=== PATIENT | male | born 1975 | race Two or more races ===

== ENCOUNTER → 2017-06-02 | Emergency (ER) | payer OTHER ==
[2017-06-02 22:48] VITALS: BMI 28.2
--- NOTE | 2017-06-02 23:20 | PDOC ---
History of Present Illness - General History Source: Patient <No Varmaan - Last Filed: 06/02/17 23:17> - General History Source: Patient Exam Limitations: No Limitations - History of Present Illness Initial Comments: 06/02/17 23:29 The patient is a 41 year old male with a significant PMH of alcohol abuse who presents to the emergency department from [facility] for evaluation of diffuse black spots on skin. Patient was sent by TAMMI Rome who was concerned about various black spots over the patients body, particularly on his arms and trunk. The patient notes that he has had these black spots for years. The patient denies chest pain, shortness of breath, headache, and dizziness. Denies fevers, chills, nausea, vomit, diarrhea, and constipation. Denies dysuria, frequency, urgency, and hematuria. Allergies: NKA Past surgical history: Rhinoplasty (1975). Social history: Alcohol abuse, at [facility] for detox. No reported cigarette or drug use. PCP: None reported. <Kalin Gutierrez - Last Filed: 06/02/17 23:29> - General Chief Complaint: Alcohol intoxication Stated Complaint: R/O DIABETES Time Seen by Provider: 06/02/17 23:14 Past History - Past Medical History Anemia: No Asthma: No Cancer: No Cardiac Disorders: No CVA: No COPD: No CHF: No Dementia: No Diabetes: No GI Disorders: No Disorders: No HTN: No Hypercholesterolemia: No Liver Disease: No Seizures: No Thyroid Disease: No - Surgical History Abdominal Surgery: No Appendectomy: No Cardiac Surgery: No Cholecystectomy: No Lung Surgery: No Neurologic Surgery: No Orthopedic Surgery: No - Suicide/Smoking/Psychosocial Hx Smoking History: Unknown if ever smoked Have you smoked in the past 12 months: No Information on smoking cessation initiated: No Hx Alcohol Use: No Drug/Substance Use Hx: No Substance Use Type: Alcohol Hx Substance Use Treatment: No <Severiano Varma - Last Filed: 06/02/17 23:17> <Kalin Gutierrez - Last Filed: 06/02/17 23:29> - Past Medical History Allergies/Adverse Reactions: Allergies Allergy/AdvReac Type Severity Reaction Status Date / Time No Known Allergies Allergy Verified 06/02/17 22:47 Review of Systems - Review of Systems Able to Perform ROS?: Yes Comments:: 06/02/17 23:29 CONSTITUTIONAL: Absent: fever, chills, diaphoresis, generalized weakness, malaise, loss of appetite HEENT: Absent: rhinorrhea, nasal congestion, throat pain, throat swelling, difficulty swallowing, mouth swelling, ear pain, eye pain, visual Changes CARDIOVASCULAR: Absent: chest pain, syncope, palpitations, irregular heart rate, lightheadedness , peripheral edema RESPIRATORY: Absent: cough, shortness of breath, dyspnea with exertion, orthopnea, wheezing, stridor, hemoptysis GASTROINTESTINAL: Absent: abdominal pain, abdominal distension, nausea, vomiting, diarrhea, constipation, melena, hematochezia GENITOURINARY: Absent: dysuria, frequency, urgency, hesitancy, hematuria, flank pain, genital pain MUSCULOSKELETAL: Absent: myalgia, arthralgia, joint swelling SKIN: (+) Black spots diffusely over body. Absent: rash, itching, pallor HEMATOLOGIC/IMMUNOLOGIC: Absent: easy bleeding, easy bruising, lymphadenopathy, frequent infections ENDOCRINE: Absent: unexplained weight gain, unexplained weight loss, heat intolerance, cold intolerance NEUROLOGIC: Absent: headache, focal weakness or paresthesias, dizziness, unsteady gait, seizure, mental status changes, bladder or bowel incontinence PSYCHIATRIC: Absent: anxiety, depression, suicidal or homicidal ideation, hallucinations. <Kalin Gutierrez - Last Filed: 06/02/17 23:29> *Physical Exam - Vital Signs Last Vital Signs Temp Pulse Resp BP Pulse Ox 98 F 92 H 15 136/72 96 06/02/17 23:16 06/02/17 23:16 06/02/17 23:16 06/02/17 23:16 06/02/17 23:16 <Severiano Varma - Last Filed: 06/02/17 23:17> - Vital Signs Last Vital Signs Temp Pulse Resp BP Pulse Ox 98 F 92 H 15 136/72 96 06/02/17 23:16 06/02/17 23:16 06/02/17 23:16 06/02/17 23:16 06/02/17 23:16 - Physical Exam Comments: 06/02/17 23:29 GENERAL: Well developed, well nourished. Awake and alert. No acute distress. HEENT: Normocephalic, atraumatic. PERRLA, EOMI. No conjunctival pallor. Sclera are non- icteric. Moist mucous membranes. Oropharynx is clear. NECK: Supple. Full ROM. No JVD. Carotid pulses 2+ and symmetric, without bruits. No thyromegaly. No lymphadenopathy. CARDIOVASCULAR: Regular rate and rhythm. No murmurs, rubs, or gallops. Distal pulses are 2+ and symmetric. PULMONARY: No evidence of respiratory distress. Lungs clear to auscultation bilaterally. No wheezing, rales or rhonchi. ABDOMINAL: Soft. Non-tender. Non-distended. No rebound or guarding. No organomegaly. Normoactive bowel sounds. MUSCULOSKELETAL Normal range of motion at all joints. No bony deformities or tenderness. No CVA tenderness. EXTREMITIES: No cyanosis. No clubbing. No edema. No calf tenderness. SKIN: (+) Diffuse black lesions, particularly on arms bilaterally and trunk, nontender, nonerythematous, nonfluctuant diffusely. Warm and dry. Normal capillary refill. No rashes. No jaundice. NEUROLOGICAL: Alert, awake, appropriate. Cranial nerves 2-12 intact. No deficits to light touch and temperature in face, upper extremities and lower extremities. No motor deficits in the in face, upper extremities and lower extremities. Normoreflexic in the upper and lower extremities. Normal speech. Toes are downgoing bilaterally. Gait is normal without ataxia. PSYCHIATRIC: Cooperative. Good eye contact. Appropriate mood and affect. <Kalin Gutierrez - Last Filed: 06/02/17 23:29> *DC/Admit/Observation/Transfer - Attestations Scribe Attestion: 06/02/17 23:29 Documentation prepared by Kalin Gutierrez, acting as medical secretary for Severiano Varma DO. <Kalin Gutierrez - Last Filed: 06/02/17 23:29>
[2017-06-02 23:38] VITALS: BP 136/72; PULSE 92; TEMP 98
== END | disposition home or self-care (01) ==
LOC: JER 22:32
DX: R23.9 Unspecified skin changes (principal)
CPT/HCPCS: 70450-TC; 99282-25

== ENCOUNTER 2018-04-01 18:39 | Inpatient (IN) | payer OTHER ==
--- NOTE | 2018-04-01 19:01 | HP ---
CIWA Score Nausea/Vomitin Muscle Tremors: 2 Anxiety: 2 Agitation: 2 Paroxysmal Sweats: 1-Minimal Palms Moist Orientation: 0-Oriented Tacttile Disturbances: 1-Very Mild Itch/Numbness Auditory Disturbances: 1-Very Mild Visual Disturbances: 0-None Headache: 2-Mild CIWA-Ar Total Score: 14 - Admission Criteria [facility] Guidelines: Admission for Medically Managed Detox: Requires at least one of the followin. CIWA greater than 12 2. Seizures within the past 24 hours 3. Delirium tremens within the past 24 hours 4. Hallucinations within the past 24 hours 5. Acute intervention needed for co occurring medical disorder 6. Acute intervention needed for co occurring psychiatric disorder 7. Severe withdrawal that cannot be handled at a lower level of care (continued vomiting, continued diarrhea, abnormal vital signs) requiring intravenous medication and/or fluids 8. Patient presents the following: CIWA greater than 12 Admission Criteria Met: Admission criteria met Admission ROS BHS - HPI Chief Complaint: i need help to stop drinking alcohol Allergies/Adverse Reactions: Allergies Allergy/AdvReac Type Severity Reaction Status Date / Time No Known Allergies Allergy Verified 04/01/18 18:50 History of Present Illness: this 42 years old male with alcohol dependence,seeking help to stop drinking, withdrawal symptom, stated seen at [facility] on tuesday03/30/18 receing medication and was sent home yesterday 03/31/18 multiple ecchymosis body,extremities denied trauma last detox in [facility] in 06/26 nicotine dependence no significant period of sobriety syncope alcohol related Exam Limitations: No Limitations - Ebola screening Have you traveled outside of the country in the last 21 days: No - Review of Systems Constitutional: Loss of Appetite, Malaise, Night Sweats, Changes in sleep, Weakness EENT: reports: Nose Congestion, Other (jaundice) Respiratory: reports: No Symptoms reported Cardiac: reports: No Symptoms Reported GI: reports: Nausea, Vomiting, Abdominal cramping : reports: No Symptoms Reported Musculoskeletal: reports: Back Pain, Muscle Pain Integumentary: reports: Dryness (multiple ecchymosis of body,extremities) Neuro: reports: Tremors Endocrine: reports: No Symptoms Reported Hematology: reports: No Symptoms Reported Psychiatric: reports: No Sypmtoms Reported, Judgement Intact, Mood/Affect Appropiate, Orientated x3 Patient History - Patient Medical History Hx Anemia: No Hx Asthma: No Hx Chronic Obstructive Pulmonary Disease (COPD): No Hx Cancer: No Hx Cardiac Disorders: No Hx Congestive Heart Failure: No Hx Hypertension: No Hx Hypercholesterolemia: No HX Cerebrovascular Accident: No Hx Seizures: No Hx Dementia: No Hx Diabetes: No Hx Gastrointestinal Disorders: No Hx Liver Disease: No Hx Genitourinary Disorders: No Hx Sexually Transmitted Disorders: No Hx Renal Disease (ESRD): No Hx Thyroid Disease: No Hx Human Immunodeficiency Virus (HIV): No (Negative April 2017) Hx Hepatitis C: No Hx Depression: No Hx Suicide Attempt: No (Denies suicidal ideation) Hx Bipolar Disorder: No Hx Schizophrenia: No Other Medical History: no sucidal,no homicidal - Patient Surgical History Past Surgical History: Yes Hx Neurologic Surgery: No Hx Cataract Extraction: No Hx Cardiac Surgery: No Hx Lung Surgery: No Hx Abdominal Surgery: No Hx Appendectomy: No Hx Cholecystectomy: No Hx Genitourinary Surgery: No Hx Orthopedic Surgery: No Other Surgical History: Rhinoplasty 1976 Anesthesia Reaction: No - PPD History Previous Implant?: Yes Documented Results: Negative w/o proof Implanted On Prior R Admission?: No PPD to be Administered?: Yes - Smoking Cessation Smoking history: Current every day smoker Have you smoked in the past 12 months: Yes Aproximately how many cigarettes per day: 2 Cigars Per Day: 0 Hx Chewing Tobacco Use: No Initiated information on smoking cessation: Yes 'Breaking Loose' booklet given: 04/01/18 - Substance & Tx. History Hx Alcohol Use: Yes Hx Substance Use: No Substance Use Type: Alcohol Hx Substance Use Treatment: Yes ([facility] in 06/26) - Substances Abused Alcohol Route: Oral Frequency: Daily Amount used: 500 mls of vodka Age of first use: 11 Date of Last Use: 04/30/18 Family Disease History - Family Disease History Family Disease History: Diabetes: Mother (), Other: Father (alcohol, ) Admission Physical Exam BHS - Vital Signs Vital Signs: Vital Signs Temperature 98.6 F 04/01/18 18:48 Pulse Rate 106 H 04/01/18 18:48 Respiratory Rate 18 04/01/18 18:48 Blood Pressure 149/84 04/01/18 18:48 O2 Sat by Pulse Oximetry (%) - Physical General Appearance: Yes: Moderate Distress, Tremorous, Irritable, Sweating, Anxious HEENTM: Yes: Normal ENT Inspection, SATURNINO, Pharynx Normal, Other (jaundice rhinoplasty) Respiratory: Yes: Lungs Clear, Normal Breath Sounds, No Respiratory Distress Neck: Yes: Within Normal Limits, Supple, Trachea in good position Breast: Yes: Within Normal Limits Cardiology: Yes: Within Normal Limits, Regular Rhythm, Regular Rate, S1, S2 Abdominal: Yes: Within Normal Limits, Normal Bowel Sounds, Non Tender, Flat, Soft Genitourinary: Yes: Within Normal Limits Back: Yes: Normal Inspection, Muscle Spasm Musculoskeletal: Yes: Back pain, Muscle Pain Extremities: Yes: Tremors Neurological: Yes: slag skimmer II-XII NML intact, Fully Oriented, Alert, Motor Strength 5/5 Integumentary: Yes: Dry Lymphatic: Yes: Within Normal Limits - Diagnostic (1) Alcohol dependence with uncomplicated withdrawal Current Visit: No Status: Chronic (2) Multiple bruises Current Visit: Yes Status: Acute (3) Syncope Current Visit: Yes Status: Acute (4) Nicotine dependence Current Visit: Yes Status: Acute (5) Weight loss Current Visit: Yes Status: Acute (6) Depression Current Visit: No Status: Chronic Cleared for Admission [facility] - Detox or Rehab [facility] Level of Care: Medically Managed Detox Regimen/Protocol: Librium [facility] Breath Alcohol Content Breath Alcohol Content: 0.320
[2018-04-01] MEDS ORDERED: LOPERAMIDE HCL 2 MG CAPSULE PO PRN (19:21)
[2018-04-01] MEDS ORDERED: MENTHOL/PHENOL 1 EACH UD MM PRN (19:21)
[2018-04-01] MEDS ORDERED: ACETAMINOPHEN 325 MG TABLET (FP) PO PRN (19:21)
[2018-04-01] MEDS ORDERED: MAG HYDROX/AL HYDROX/SIMETH 30 ML UNIT-DOSE CUP PO PRN (19:21)
[2018-04-01] MEDS ORDERED: guaiFENesin/D-METHORPHAN HB 10 ML UNIT-DOSE CUPS PO PRN (19:21)
[2018-04-01] MEDS ORDERED: IBUPROFEN 400 MG TABLET (FP) PO PRN (19:21)
[2018-04-01] MEDS ORDERED: P-EPHED 60MG/TRIPROLIDI 2.5MG TABLET PO PRN (19:21)
[2018-04-01] MEDS ORDERED: MAGNESIUM HYDROX 2400MG/30ML ORAL SUSPENSION 30 ML CUP PO PRN (19:21)
[2018-04-01] MEDS ORDERED: MAGNESIUM CITRATE 300 ML BOTTLE PO PRN (19:21)
[2018-04-01 19:24] VITALS: BMI 25.8
[2018-04-01] MEDS: chlordiazePOXIDE HCL 25 MG CAPSULE PO PRN (20:01)
[2018-04-01] MEDS: THIAMINE HCL 100 MG TABLET (FP) PO SCH (22:12)
[2018-04-01] MEDS: chlordiazePOXIDE HCL 25 MG CAPSULE PO SCH (22:13)
[2018-04-01] MEDS: MELATONIN 5 MG TABLETS PO PRN (23:25)
[2018-04-02] MEDS: chlordiazePOXIDE HCL 25 MG CAPSULE PO SCH ×4 (06:10→22:08)
[2018-04-02] MEDS: chlordiazePOXIDE HCL 25 MG CAPSULE PO PRN (09:25)
--- NOTE | 2018-04-02 10:07 | CONSULT ---
[facility] Psychiatric Consult - Data Date of interview: 04/02/18 Admission source: [facility] Identifying data: Patient is a 42 y/o male single, without children, unemployed , homeless, on public assistance Substance Abuse History: Here for alcohol detox, he has a long history of alcohol abuse since his adolescence age. He has been on a binge over the past 3 months. He drinks Vodka, Tequilla , beers on a daily frequency. He reports past Detox treatments at [facility]. His most recent Detox admission was 6 months ago Medical History: Patient denies active medical problem. Noted bruises over abdomen and upper extremities. Broken nose repaired in 1997 Psychiatric History: Patient denies past psychiatric hospitalization or treatment. Occasionally feels depressed, denies psychosis , anxiety or mood swings , he denies suicidal or homicidal ideation. Patient stated when he feels depressed mostly after he stopped drinking Physical/Sexual Abuse/Trauma History: Patient denies history of abuse or trauma Additional Comment: Prior trouble with law for DUI Mental Status Exam - Mental Status Exam Alert and Oriented to: Place, Person Cognitive Function: Grossly Intact Patient Appearance: Well Groomed Mood: Sad Affect: Appropriate Patient Behavior: Appropriate, Cooperative Speech Pattern: Clear Voice Loudness: Normal Thought Process: Intact Thought Disorder: Not Present Hallucinations: Denies Suicidal Ideation: Denies Homicidal Ideation: Denies Insight/Judgement: Poor Sleep: Difficulty falling asleep Appetite: Poor Muscle strength/Tone: Mild Hypotonicity Gait/Station: Normal Psychiatric Findings - Problem List (Clark 1, 2,3) (1) Multiple bruises Current Visit: Yes Status: Acute (2) Nicotine dependence Current Visit: Yes Status: Acute (3) Syncope Current Visit: Yes Status: Acute (4) Alcohol dependence with uncomplicated withdrawal Current Visit: No Status: Chronic (5) Depression Current Visit: No Status: Chronic - Initial Treatment Plan Initial Treatment Plan: Continue Detox treament. Trazodone 50 mg po q hs. Monitor progress
[2018-04-02] MEDS: PRENATAL VITAMINS W/ FOLIC ACID TABLET (FP) PO SCH (10:27)
[2018-04-02 10:37] LABS: HEMATOCRIT 39.6 % (35.4-49); HEMOGLOBIN 13.2 GM/dL (11.7-16.9); MCH 32.5 pg (25.7-33.7); MCHC 33.4 g/dl (32.0-35.9); MEAN CELL VOLUME 97.1 fl (80-96); PLATELET COUNT 65 K/MM3 (134-434); RBC 4.08 M/mm3 (4.00-5.60); RDW 16.8 % (11.9-15.9); WHITE BLOOD COUNT 4.3 K/mm3 (4.0-10.0)
[2018-04-02 10:54] LABS: ALBUMIN 3.6 g/dl (3.4-5.0); ALK PHOS 115 U/L (45-117); ANION GAP 13 MMOL/L (8-16); BILIRUBIN,TOTAL 3.1 mg/dL (0.2-1); BLOOD UREA NITROGEN 7 mg/dL (7-18); CALCIUM 8.6 mg/dL (8.5-10.1); CHLORIDE 93 mmol/L (98-107); CO2 29 mmol/L (21-32); CREATININE 0.5 mg/dL (0.55-1.3); GLUCOSE,RANDOM 83 mg/dL (74-106); SGOT/AST 413 U/L (15-37); SGPT/ALT 189 U/L (13-61); SODIUM 135 mmol/L (136-145); TOT PROT 7.3 g/dl (6.4-8.2)
[2018-04-02 11:05] LABS: INR 1.03 (0.83-1.09); PROTHROMBIN TIME (PATIENT) 12.2 SEC (9.7-13.0)
[2018-04-02 11:47] LABS: POTASSIUM 2.7 mmol/L (3.5-5.1)
[2018-04-02] MEDS ORDERED: POTASSIUM CHLORIDE ORAL LIQUID 20 MEQ/15 ML PO ONE ×3 (11:52→21:00)
[2018-04-02] MEDS: AMMONIUM LACTATE 12% LOTION 225 GM BOTTLE TP SCH ×3 (12:46→22:10)
--- NOTE | 2018-04-02 15:38 | PN ---
[facility] CIWA - CIWA Score Nausea/Vomitin Muscle Tremors: 4-Moderate,w/Arms Extend Anxiety: 4-Mod. Anxious/Guarded Agitation: 3 Paroxysmal Sweats: 3 Orientation: 0-Oriented Tacttile Disturbances: 1-Very Mild Itch/Numbness Auditory Disturbances: 0-None Visual Disturbances: 0-None Headache: 0-None Present CIWA-Ar Total Score: 17 S Progress Note (SOAP) Subjective: Tremor, interrupted sleep, nightmares; c/o dry skin and requesting lotion Objective: 04/02/18 15:34 Last Vital Signs Temp Pulse Resp BP Pulse Ox 97.4 F L 73 18 95/61 04/02/18 13:43 04/02/18 13:43 04/02/18 13:43 04/02/18 13:43 Hypotension noted Laboratory Tests 04/02/18 04/02/18 04/02/18 07:30 07:30 07:30 WBC 4.3 RBC 4.08 Hgb 13.2 Hct 39.6 MCV 97.1 H MCH 32.5 MCHC 33.4 RDW 16.8 H Plt Count 65 L MPV 9.0 PT with INR INR Sodium 135 L Potassium 2.7 L* Chloride 93 L Carbon Dioxide 29 Anion Gap 13 BUN 7 Creatinine 0.5 L Creat Clearance w eGFR > 60 Random Glucose 83 Calcium 8.6 Total Bilirubin 3.1 H AST 413 H ALT 189 H Alkaline Phosphatase 115 Ammonia Total Protein 7.3 Albumin 3.6 RPR Titer Nonreactive 04/02/18 04/02/18 07:30 07:30 WBC RBC Hgb Hct MCV MCH MCHC RDW Plt Count MPV PT with INR 12.20 INR 1.03 Sodium Potassium Chloride Carbon Dioxide Anion Gap BUN Creatinine Creat Clearance w eGFR Random Glucose Calcium Total Bilirubin AST ALT Alkaline Phosphatase Ammonia 158.60 H Total Protein Albumin RPR Titer Labs reviewed: K 2.7, AST/ALT 413/189, Ammonia level 158.60 Assessment: 04/02/18 15:37 Withdrawal symptoms Noted with hypokalemia, hyponatremia, elevated LFTs and hyperammonemia Plan: Continue detox Hypokalemia: asymptomatic, start K Dur 40 Meq PO liquid x 3 doses (at least 4 hrs apart) today then 20 Meq PO bid to start tomorrow, K level in AM Hyponatremia: asymptomatic, repeat Na level in AM Elevated LFTs: probably due to alcohol dependence; repeat AST/ALT in AM Hyperammonemia: start lactulose 20gm PO bid (to start tomorrow due to supplemental of potassium) Dry skin: lac hydrin lotion bid
[2018-04-02] MEDS: THIAMINE HCL 100 MG TABLET (FP) PO SCH (22:08)
[2018-04-02] MEDS: traZODone HCL 50 MG TABLET (FP) PO SCH (22:08)
[2018-04-02] MEDS: MELATONIN 5 MG TABLETS PO PRN (23:08)
[2018-04-03] MEDS: chlordiazePOXIDE HCL 25 MG CAPSULE PO SCH ×3 (06:10→17:08)
[2018-04-03] MEDS: POTASSIUM CHLORIDE TABS 20 MEQ TABLET.ER (FP) PO SCH ×2 (10:11→22:25)
[2018-04-03] MEDS: LACTULOSE 20 GM/30 ML UDC (FOR ORAL USE ONLY) PO SCH ×2 (10:11→22:39)
[2018-04-03] MEDS: PRENATAL VITAMINS W/ FOLIC ACID TABLET (FP) PO SCH (10:11)
[2018-04-03] MEDS: AMMONIUM LACTATE 12% LOTION 225 GM BOTTLE TP SCH ×2 (10:12→22:40)
--- NOTE | 2018-04-03 10:44 | PN ---
[facility] CIWA - CIWA Score Nausea/Vomitin-Mild Nausea/No Vomiting Muscle Tremors: 3 Anxiety: 1-Mildly Anxious Agitation: 1-Slight > Activity Paroxysmal Sweats: 3 Orientation: 0-Oriented Tacttile Disturbances: 0-None Auditory Disturbances: 0-None Visual Disturbances: 0-None Headache: 0-None Present CIWA-Ar Total Score: 9 S Progress Note (SOAP) Subjective: Tremors Sleep disturbance sweats Objective: 04/03/18 10:44 In day room, A & O x 3 No acute distress noted Vital Signs Temperature 96.8 F L 04/03/18 09:04 Pulse Rate 98 H 04/03/18 09:04 Respiratory Rate 18 04/03/18 09:04 Blood Pressure 92/61 04/03/18 09:04 O2 Sat by Pulse Oximetry (%) Low BP, denies dizziness nor other complaints Assessment: 04/03/18 10:45 withdrawal sx hYPOTENSION Plan: Continue detox Continue increased hydration
[2018-04-03 11:08] LABS: POTASSIUM 3.7 mmol/L (3.5-5.1)
--- NOTE | 2018-04-03 14:48 | PN ---
[facility] Progress Note Note: Pt requesting to be discharged on Tuesday because he says he has a high risk for relapse, states "I know myself, when I go out I may not be able to stop and I dont feel well". Pt denies SI/HI. Offered aftercare rehab to pt, but he declined stating he has to go back to work. Explained to pt that he will be clinically monitored with discharge decisions made as necessary to ensure a safe discharge. Pt verbalized understanding.
[2018-04-03 15:10] LABS: URINE APPEARANCE CLEAR; URINE COLOR AMBER; URINE GLUCOSE (UA) NEGATIVE (NEGATIVE); URINE KETONE NEGATIVE (NEGATIVE); URINE LEUK ESTERASE NEGATIVE (NEGATIVE); URINE NITRITE NEGATIVE (NEGATIVE); URINE PROTEIN 2+ (NEGATIVE); URINE UROBILINOGEN 4.0 E.U/dl mg/dL (0.2-1.0)
[2018-04-03 15:23] LABS: EPI CELLS RARE /HPF (FEW); URINE MUCUS RARE
[2018-04-03] MEDS: hydrOXYzine PAMOATE 25 MG CAPSULE (FP) PO PRN ×2 (17:42→23:05)
--- NOTE | 2018-04-03 18:54 | PN ---
[facility] Progress Note Note: pt states he developed a rash on his arms after dinner. Has a chronic ecchymotic rash on arms and torso. This rash only on his arms-better now compared to about 2 hours ago when he received vistaril. Denies SOB, throat/ tongue swelling. PE: Vital Signs - 24 hr 04/02/18 04/03/18 04/03/18 21:25 00:30 03:30 Temperature 97.4 F L Pulse Rate 73 Respiratory 18 16 16 Rate Blood Pressure 100/60 04/03/18 04/03/18 04/03/18 06:24 09:04 13:04 Temperature 97.1 F L 96.8 F L 96.9 F L Pulse Rate 65 98 H 92 H Respiratory 18 18 18 Rate Blood Pressure 98/63 92/61 98/60 04/03/18 18:00 Temperature 97.1 F L Pulse Rate 74 Respiratory 18 Rate Blood Pressure 104/67 rash- large macular/papular quarter size- from wrist to mid arm. Nowhere else on body- not on trunk, legs or back. No vesicles a/p: allergic rash to food? pt states food intake was usual food-nothing new. Will give another dose of Vistaril at 7pm (2 hours after first dose) and hydrocortisone cream.
[2018-04-03] MEDS: HYDROCORTISONE 0.5% TOPICAL CREAM 30 GM TUBE TP PRN ×2 (19:10→22:26)
[2018-04-03] MEDS ORDERED: hydrOXYzine PAMOATE 25 MG CAPSULE (FP) PO ONE (19:15)
[2018-04-03] MEDS: traZODone HCL 50 MG TABLET (FP) PO SCH (22:25)
[2018-04-03] MEDS: chlordiazePOXIDE 5 MG CAPSULE PO SCH (22:26)
[2018-04-03] MEDS: THIAMINE HCL 100 MG TABLET (FP) PO SCH (22:26)
[2018-04-03] MEDS: MELATONIN 5 MG TABLETS PO PRN (22:28)
[2018-04-04] MEDS: chlordiazePOXIDE 5 MG CAPSULE PO SCH ×3 (05:19→16:18)
[2018-04-04] MEDS: AMMONIUM LACTATE 12% LOTION 225 GM BOTTLE TP SCH ×2 (10:12→22:18)
[2018-04-04] MEDS: POTASSIUM CHLORIDE TABS 20 MEQ TABLET.ER (FP) PO SCH ×2 (10:13→22:18)
[2018-04-04] MEDS: PRENATAL VITAMINS W/ FOLIC ACID TABLET (FP) PO SCH (10:13)
[2018-04-04] MEDS: LACTULOSE 20 GM/30 ML UDC (FOR ORAL USE ONLY) PO SCH ×2 (10:15→22:17)
--- NOTE | 2018-04-04 12:36 | EKG ---
Test Reason : Blood Pressure : / mmHG Vent. Rate : 087 BPM Atrial Rate : 087 BPM P-R Int : 140 ms QRS Dur : 080 ms QT Int : 366 ms P-R-T Axes : 051 006 016 degrees QTc Int : 440 ms NORMAL SINUS RHYTHM NORMAL ECG Confirmed by MD MAURICE, VIKAS ([id number]) on 04/04/2018 12:36:04 PM Referred By: Josephine Dickens Confirmed By:VIKAS RICHARDS MD
--- NOTE | 2018-04-04 15:27 | PN ---
S Progress Note (SOAP) Subjective: Tremor, anxious, sweating. Patient scheduled for discharge tomorrow and refused inpatient rehab. Objective: 04/04/18 15:21 Last Vital Signs Temp Pulse Resp BP Pulse Ox 97.1 F L 88 18 98/63 04/04/18 13:05 04/04/18 13:05 04/04/18 13:05 04/04/18 13:05 Hypotension noted (98/63) Laboratory Tests 04/02/18 04/02/18 04/02/18 07:00 07:30 07:30 WBC 4.3 RBC 4.08 Hgb 13.2 Hct 39.6 MCV 97.1 H MCH 32.5 MCHC 33.4 RDW 16.8 H Plt Count 65 L MPV 9.0 PT with INR INR Sodium 135 L Potassium 2.7 L* Chloride 93 L Carbon Dioxide 29 Anion Gap 13 BUN 7 Creatinine 0.5 L Creat Clearance w eGFR > 60 Random Glucose 83 Calcium 8.6 Total Bilirubin 3.1 H AST 413 H ALT 189 H Alkaline Phosphatase 115 Ammonia Total Protein 7.3 Albumin 3.6 Urine Color Urine Appearance Urine pH Ur Specific [place] Urine Protein Urine Glucose (UA) Urine Ketones Urine Blood Urine Nitrite Urine Bilirubin Urine Urobilinogen Ur Leukocyte Esterase Urine WBC (Auto) Urine RBC (Auto) Ur Epithelial Cells Urine Mucus RPR Titer HIV 1&2 Antibody Screen Negative HIV P24 Antigen Negative 04/02/18 04/02/18 04/02/18 07:30 07:30 07:30 WBC RBC Hgb Hct MCV MCH MCHC RDW Plt Count MPV PT with INR 12.20 INR 1.03 Sodium Potassium Chloride Carbon Dioxide Anion Gap BUN Creatinine Creat Clearance w eGFR Random Glucose Calcium Total Bilirubin AST ALT Alkaline Phosphatase Ammonia 158.60 H Total Protein Albumin Urine Color Urine Appearance Urine pH Ur Specific [place] Urine Protein Urine Glucose (UA) Urine Ketones Urine Blood Urine Nitrite Urine Bilirubin Urine Urobilinogen Ur Leukocyte Esterase Urine WBC (Auto) Urine RBC (Auto) Ur Epithelial Cells Urine Mucus RPR Titer Nonreactive HIV 1&2 Antibody Screen HIV P24 Antigen 04/03/18 04/03/18 07:00 10:30 WBC RBC Hgb Hct MCV MCH MCHC RDW Plt Count MPV PT with INR INR Sodium 136 Potassium 3.7 Chloride Carbon Dioxide Anion Gap BUN Creatinine Creat Clearance w eGFR Random Glucose Calcium Total Bilirubin AST 277 H ALT 182 H Alkaline Phosphatase Ammonia Total Protein Albumin Urine Color Diana Urine Appearance Clear Urine pH 7.0 Ur Specific [place] 1.017 Urine Protein 2+ H Urine Glucose (UA) Negative Urine Ketones Negative Urine Blood Negative Urine Nitrite Negative Urine Bilirubin 4.0 Urine Urobilinogen 4.0 e.u/dl Ur Leukocyte Esterase Negative Urine WBC (Auto) 2 Urine RBC (Auto) 1 Ur Epithelial Cells Rare Urine Mucus Rare RPR Titer HIV 1&2 Antibody Screen HIV P24 Antigen Labs reviewed: increased LFs (trending downward), UA shows 2+ protein Assessment: 04/04/18 15:22 Withdrawal symptoms Noted with hypotension and proteinuria Plan: Continue detox Hypotension: asymptomatic, encouraged PO water intake Proteinuria: repeat UA Patient is scheduled for discharge tomorrow
[2018-04-04] MEDS: chlordiazePOXIDE HCL 10 MG CAPSULE PO SCH (22:17)
[2018-04-04] MEDS: traZODone HCL 50 MG TABLET (FP) PO SCH (22:17)
[2018-04-04] MEDS: THIAMINE HCL 100 MG TABLET (FP) PO SCH (22:18)
[2018-04-04] MEDS: MELATONIN 5 MG TABLETS PO PRN (22:20)
[2018-04-04 23:26] LABS: URINE APPEARANCE CLEAR; URINE BILIRUBIN NEGATIVE (<2.0 mg/dL); URINE COLOR AMBER; URINE GLUCOSE (UA) NEGATIVE (NEGATIVE); URINE KETONE NEGATIVE (NEGATIVE); URINE LEUK ESTERASE NEGATIVE (NEGATIVE); URINE NITRITE NEGATIVE (NEGATIVE); URINE PROTEIN NEGATIVE (NEGATIVE); URINE UROBILINOGEN 4.0 E.U/dl mg/dL (0.2-1.0)
[2018-04-05] MEDS: chlordiazePOXIDE HCL 10 MG CAPSULE PO SCH (05:45)
[2018-04-05 06:15] VITALS: BP 100/58; PULSE 65; TEMP 98
--- NOTE | 2018-04-05 09:18 | DS ---
[facility] Detox Discharge Summary Admission Date: 04/01/18 Discharge Date: 04/05/18 - History Present History: Alcohol Dependence Additional Comments: 42 years old male admitted on 04/01/18 for alcohol withdrawl sx completed alcohol detox regimen tolerated well with ammonia elevation treated with lactulose po case discussed with the counselor aftercare revelation x 14 days continue lactulose treatment health teaching on alcohol related ammonia elevation - Physical Exam Results Vital Signs: Vital Signs Temperature 98.0 F 04/05/18 06:13 Pulse Rate 65 04/05/18 06:13 Respiratory Rate 18 04/05/18 06:13 Blood Pressure 100/58 L 04/05/18 06:13 O2 Sat by Pulse Oximetry (%) Pertinent Admission Physical Exam Findings: alcohol withdrawal sx Vital Signs Temperature 98.0 F 04/05/18 06:13 Pulse Rate 65 04/05/18 06:13 Respiratory Rate 18 04/05/18 06:13 Blood Pressure 100/58 L 04/05/18 06:13 O2 Sat by Pulse Oximetry (%) Laboratory Last Values WBC 4.3 K/mm3 (4.0-10.0) 04/02/18 07:30 RBC 4.08 M/mm3 (4.00-5.60) 04/02/18 07:30 Hgb 13.2 GM/dL (11.7-16.9) 04/02/18 07:30 Hct 39.6 % (35.4-49) 04/02/18 07:30 MCV 97.1 fl (80-96) H 04/02/18 07:30 MCH 32.5 pg (25.7-33.7) 04/02/18 07:30 MCHC 33.4 g/dl (32.0-35.9) 04/02/18 07:30 RDW 16.8 % (11.9-15.9) H 04/02/18 07:30 Plt Count 65 K/MM3 (134-434) L 04/02/18 07:30 MPV 9.0 fl (7.5-11.1) 04/02/18 07:30 PT with INR 12.20 SEC (9.7-13.0) 04/02/18 07:30 INR 1.03 (0.83-1.09) 04/02/18 07:30 Sodium 136 mmol/L (136-145) 04/03/18 07:00 Potassium 3.7 mmol/L (3.5-5.1) 04/03/18 07:00 Chloride 93 mmol/L (98-107) L 04/02/18 07:30 Carbon Dioxide 29 mmol/L (21-32) 04/02/18 07:30 Anion Gap 13 MMOL/L (8-16) 04/02/18 07:30 BUN 7 mg/dL (7-18) 04/02/18 07:30 Creatinine 0.5 mg/dL (0.55-1.3) L 04/02/18 07:30 Creat Clearance w eGFR > 60 (>60) 04/02/18 07:30 Random Glucose 83 mg/dL (74-106) 04/02/18 07:30 Calcium 8.6 mg/dL (8.5-10.1) 04/02/18 07:30 Total Bilirubin 3.1 mg/dL (0.2-1) H 04/02/18 07:30 AST 277 U/L (15-37) H 04/03/18 07:00 ALT 182 U/L (13-61) H 04/03/18 07:00 Alkaline Phosphatase 115 U/L (45-117) 04/02/18 07:30 Ammonia 158.60 umol/L (11-32) H 04/02/18 07:30 Total Protein 7.3 g/dl (6.4-8.2) 04/02/18 07:30 Albumin 3.6 g/dl (3.4-5.0) 04/02/18 07:30 Urine Color Diana 04/04/18 16:27 Urine Appearance Clear 04/04/18 16:27 Urine pH 7.0 (5.0-8.0) 04/04/18 16:27 Ur Specific [place] 1.013 (1.010-1.035) 04/04/18 16: Urine Protein Negative (NEGATIVE) 04/04/18 16: Urine Glucose (UA) Negative (NEGATIVE) 04/04/18 16:27 Urine Ketones Negative (NEGATIVE) 04/04/18 16:27 Urine Blood Negative (NEGATIVE) 04/04/18 16: Urine Nitrite Negative (NEGATIVE) 04/04/18 16: Urine Bilirubin Negative (<2.0 mg/dL) 04/04/18 16:27 Urine Urobilinogen 4.0 e.u/dl mg/dL (0.2-1.0) 04/04/18 16:27 Ur Leukocyte Esterase Negative (NEGATIVE) 04/04/18 16:27 Urine WBC (Auto) 2 /hpf (3-5) 04/03/18 10:30 Urine RBC (Auto) 1 /hpf (0-3) 04/03/18 10:30 Ur Epithelial Cells Rare /HPF (FEW) 04/03/18 10:30 Urine Mucus Rare 04/03/18 10:30 RPR Titer Nonreactive (NONREACTIVE) 04/02/18 07:30 HIV 1&2 Antibody Screen Negative 04/02/18 07:00 HIV P24 Antigen Negative 04/02/18 07:00 lab noted repeat ammonia level that the patient is going to [facility] [place] - Treatment Hospital Course: Detox Protocol Followed, Detoxed Safely, Responded well, Discharged Condition Good, Rehab Referral Accepted Patient has Accepted a Rehab Referral to: [facility] - Medication Discharge Medications: Ambulatory Orders Lactulose (Oral Use) [Cephulac -] 20 gm PO BID #1 [facility] [place] 04/05/18 - Diagnosis (1) Alcohol dependence with uncomplicated withdrawal Current Visit: Yes Status: Acute (2) Hyperammonemia Current Visit: Yes Status: Acute (3) Multiple bruises Current Visit: Yes Status: Chronic (4) Nicotine dependence Current Visit: Yes Status: Acute Qualifiers: Nicotine product type: cigarettes Substance use status: in withdrawal Qualified Code(s): F17.213 - Nicotine dependence, cigarettes, with withdrawal - AMA Did Patient Leave Against Medical Advice: No
== END 2018-04-05 09:23 | disposition home or self-care (01) | DRG 775 ==
LOC: YASAS 18:39 → Y3N 19:24
PROVIDERS: ADMIT Neuromusculoskeletal Medicine & OMM; ATTEND Neuromusculoskeletal Medicine & OMM
PROC: HZ2ZZZZ Detoxification Services for Substance Abuse Treatment (ICD-10-PCS; principal; 2018-04-01)
DX: F10.230 Alcohol dependence with withdrawal, uncomplicated (principal); F17.213 Nicotine dependence, cigarettes, with withdrawal; F32.9 Major depressive disorder, single episode, unspecified; I95.9 Hypotension, unspecified; L85.3 Xerosis cutis; R94.5 Abnormal results of liver function studies; R80.9 Proteinuria, unspecified; R21 Rash and other nonspecific skin eruption; E87.1 Hypo-osmolality and hyponatremia; S30.1XXA Contusion of abdominal wall, initial encounter; S40.022A Contusion of left upper arm, initial encounter; S40.021A Contusion of right upper arm, initial encounter; X58.XXXA Exposure to other specified factors, initial encounter; Y93.9 Activity, unspecified; Y92.9 Unspecified place or not applicable
CPT/HCPCS: 36415; 80053; 81003; 81015; 82140; 84132; 84295; 84450; 84460; 85027; 85610; 86593; 87389; 93005; 93010

== ENCOUNTER 2018-04-05 10:13 | Inpatient (IN) | payer OTHER ==
[2018-04-05 11:27] VITALS: BMI 26.6
[2018-04-05] MEDS ORDERED: MAGNESIUM CITRATE 300 ML BOTTLE PO PRN (12:27)
[2018-04-05] MEDS ORDERED: LOPERAMIDE HCL 2 MG CAPSULE PO PRN (12:27)
[2018-04-05] MEDS ORDERED: ACETAMINOPHEN 325 MG TABLET (FP) PO PRN (12:27)
[2018-04-05] MEDS ORDERED: MAGNESIUM HYDROX 2400MG/30ML ORAL SUSPENSION 30 ML CUP PO PRN (12:27)
[2018-04-05] MEDS ORDERED: NICOTINE POLACRILEX 4 MG GUM BUC PRN (12:27)
[2018-04-05] MEDS ORDERED: guaiFENesin/D-METHORPHAN HB 10 ML UNIT-DOSE CUPS PO PRN (12:27)
[2018-04-05] MEDS ORDERED: MAG HYDROX/AL HYDROX/SIMETH 30 ML UNIT-DOSE CUP PO PRN (12:27)
[2018-04-05] MEDS ORDERED: MENTHOL/PHENOL 1 EACH UD MM PRN (12:27)
[2018-04-05] MEDS ORDERED: IBUPROFEN 400 MG TABLET (FP) PO PRN (12:27)
[2018-04-05] MEDS ORDERED: P-EPHED 60MG/TRIPROLIDI 2.5MG TABLET PO PRN (12:27)
--- NOTE | 2018-04-05 12:27 | HP ---
[facility] Rehab Assess/Revision - Admission History Admitted to Rehab from: [facility] - Vital signs Vital Signs: Vital Signs Period Temp Pulse Resp BP Sys/Reynolds Pulse Ox Last 24 Hr 98.7 F 96 18 118/61 - Findings Detox History & Physical reviewed: Yes Concur with findings: Yes Inpatient Rehab Admission - Initial Determination Are CD services needed?: Yes Free of communicable disease: Yes Not in need of hospitalization: Yes - Rehab Admission Criteria Previous failed treatment: Yes Poor recovery environment: Yes Comorbidities: Yes Lacks judgement: Yes Patient is meeting Inpatient Rehab admission criteria:: No
[2018-04-05] MEDS: LACTULOSE 20 GM/30 ML UDC (FOR ORAL USE ONLY) PO SCH ×2 (14:25→22:27)
[2018-04-05 14:53] LABS: HEMATOCRIT 39.3 % (35.4-49); MCH 33.1 pg (25.7-33.7); MCHC 33.1 g/dl (32.0-35.9); MEAN CELL VOLUME 100.1 fl (80-96); MEAN PLT VOLUME 8.5 fl (7.5-11.1); PLATELET COUNT 141 K/MM3 (134-434); RBC 3.92 M/mm3 (4.00-5.60); RDW 17.6 % (11.9-15.9); WHITE BLOOD COUNT 4.1 K/mm3 (4.0-10.0)
[2018-04-05 15:26] LABS: ALBUMIN 3.6 g/dl (3.4-5.0); ALK PHOS 125 U/L (45-117); ANION GAP 10 MMOL/L (8-16); BILIRUBIN,TOTAL 3.4 mg/dL (0.2-1); BLOOD UREA NITROGEN 7 mg/dL (7-18); CHLORIDE 100 mmol/L (98-107); CO2 25 mmol/L (21-32); CREATININE 0.7 mg/dL (0.55-1.3); GLUCOSE,RANDOM 114 mg/dL (74-106); POTASSIUM 3.8 mmol/L (3.5-5.1); SGOT/AST 155 U/L (15-37); SGPT/ALT 140 U/L (13-61); SODIUM 135 mmol/L (136-145); TOT PROT 7.1 g/dl (6.4-8.2)
--- NOTE | 2018-04-05 16:07 | PN ---
[facility] Progress Note Note: pt was exhibiting extreme shakes, sweats, purpura all over skin, and coca-cola urine, [place] [facility] [place].
[2018-04-05] MEDS: THIAMINE HCL 100 MG TABLET (FP) PO SCH (22:28)
[2018-04-05 23:21] LABS: URINE APPEARANCE CLEAR; URINE COLOR AMBER; URINE GLUCOSE (UA) NEGATIVE (NEGATIVE); URINE KETONE NEGATIVE (NEGATIVE); URINE LEUK ESTERASE NEGATIVE (NEGATIVE); URINE NITRITE NEGATIVE (NEGATIVE); URINE PROTEIN 1+ (NEGATIVE); URINE UROBILINOGEN 4.0 E.U/dl mg/dL (0.2-1.0)
[2018-04-05 23:24] LABS: EPI CELLS RARE /HPF (FEW); URINE BACTERIA RARE /hpf (NONE SEEN); URINE MUCUS RARE
[2018-04-06] MEDS: LACTULOSE 20 GM/30 ML UDC (FOR ORAL USE ONLY) PO SCH ×3 (07:08→21:44)
[2018-04-06] MEDS: NICOTINE 21 MG/24 HOURS TOPICAL PATCH TD SCH (11:01)
[2018-04-06] MEDS: PRENATAL VITAMINS W/ FOLIC ACID TABLET (FP) PO SCH (11:01)
--- NOTE | 2018-04-06 11:50 | PN ---
[facility] Progress Note Note: PT IS A 42 YRS OLD MALE WHO WAS DISCHARGED FROM DETOX ON 04/05/18 AND WENT TO REHAB BUT WAS SENT TO THE ER DUE TO SKIN RASH. REHAB NURSE AND ER REPORT INDICATED THAT PATIENT RETURNED(ELOPED) TO [facility] LAST NIGHT. PT WAS AGAIN SENT BACK TO THE ER THIS MORNING FOR APPROPRIATE EVALUATION BEFORE CONTINUING WITH REHAB TREATMENT. PT WAS SEEN AFTER RETURN FROM ER THIS MORNING AND NARRATED THAT RECENT RASH BEGAN 3 DAYS AGO IN DETOX AFTER DINNER. ALSO REPORTS HE HAS HAD THE CONDITION FOR ABOUT A YEAR WHILE IN [facility] AND SKIN BIOPSY(SHOWS LEFT FOREARM BIOPSY SITE ) WAS DONE WITH NEGATIVE RESULT WHILE [place]. THE RASH COMES AND GOES WITH NEW ERUPTIONS. DENIES ANY ITCHING TO THESE RASHES. DENIES ANY THROAT SWELLING, FEVER OR CHILLS. PT DENIES ANY HOME MEDS BUT WANTS TO SEE THE PSYCH FOR DEPRESSION AND INSOMNIA. PT IS ALERT O X 3. NO CONFUSION; LETHARGY. Vital Signs 04/06/18 10:23 Temperature 98.0 F Pulse Rate 69 Respiratory 18 Rate Blood Pressure 110/70 Laboratory Tests 04/05/18 04/05/18 04/05/18 13:57 13:57 14:00 WBC 4.1 RBC 3.92 L Hgb 13.0 Hct 39.3 MCV 100.1 H MCH 33.1 MCHC 33.1 RDW 17.6 H Plt Count 141 D MPV 8.5 Sodium 135 L Potassium 3.8 Chloride 100 Carbon Dioxide 25 Anion Gap 10 BUN 7 Creatinine 0.7 Creat Clearance w eGFR > 60 Random Glucose 114 H Calcium 9.0 Total Bilirubin 3.4 H AST 155 H ALT 140 H Alkaline Phosphatase 125 H Ammonia 115.23 H Creatine Kinase 201 Creatine Kinase Index 1.4 CK-MB (CK-2) 3.0 Total Protein 7.1 Albumin 3.6 Urine Color Urine Appearance Urine pH Ur Specific [place] Urine Protein Urine Glucose (UA) Urine Ketones Urine Blood Urine Nitrite Urine Bilirubin Urine Urobilinogen Ur Leukocyte Esterase Urine WBC (Auto) Urine RBC (Auto) Ur Epithelial Cells Urine Bacteria Urine Mucus 04/05/18 22:00 WBC RBC Hgb Hct MCV MCH MCHC RDW Plt Count MPV Sodium Potassium Chloride Carbon Dioxide Anion Gap BUN Creatinine Creat Clearance w eGFR Random Glucose Calcium Total Bilirubin AST ALT Alkaline Phosphatase Ammonia Creatine Kinase Creatine Kinase Index CK-MB (CK-2) Total Protein Albumin Urine Color Diana Urine Appearance Clear Urine pH 5.0 D Ur Specific [place] 1.023 Urine Protein 1+ H Urine Glucose (UA) Negative Urine Ketones Negative Urine Blood Negative Urine Nitrite Negative Urine Bilirubin 4.0 Urine Urobilinogen 4.0 e.u/dl Ur Leukocyte Esterase Negative Urine WBC (Auto) 15 Urine RBC (Auto) <1 Ur Epithelial Cells Rare Urine Bacteria Rare Urine Mucus Rare SKIN:EXTENSIVE/GENERALIZED ECHYMOTIC APPEARING SKIN RASH ERUPTIONS ON BOTH UPPER AND LOWER EXTREMITIES, ABDOMEN AND BACK. ABDOMEN;TWO DARK CIRCULAR LESIONS --REPORTS HAD THEM IN [place] ONE YEAR AGO BACK:TWO DARK CIRCULAR LESIONS-- LARGE ECHYMOTIC LESION ON MID BACK AND SMALL ON RIGHT LATERAL BACK. RIGHT LOWER THIGH: WITH RECENT PINKISH PURPURAL LESION. LOWER EXTREMITIES(KNEES TO ANKLE):GENERALIZED CIRCUMSCRIBED ECHYMOTIC LESIONS. NAD DX;RASH, UNSPECIFIC SKIN ERUPTIONS PLAN;AVEENO SOAP EUCRINE CREAM FOLLOW UP WITH DERMATOLOGY EXPLAINED AND GIVEN IN ER DISCHARGE PACKAGE. ADDENDUM: PART OF ER DOCUMENTATION Medical Decision Making - Medical Decision Making 42 year old with complaint of acute on chronic rash but otherwise stable. Lesions do not appear open or tender. He is currently in rehab and took alternate transportation here. Patient is otherwise stable so will DC patient back to rehab after we spoke to the 3 accord nursing staff at [facility]. 04/06/18 09:13 *DC/Admit/Observation/Transfer Diagnosis at time of Disposition: Rash and nonspecific skin eruption - Discharge Dispostion Disposition: HOME Condition at time of disposition: Improved Decision to Admit order: No - Referrals Referrals: Ino Nava [Non Staff, Medical] - Ethan Shetty [Non Staff, Medical] - [facility] [place] [Provider Group] - Patient Instructions Printed Discharge Instructions: DI for Rash Additional Instructions: Please finish rehab and follow up with our clinic and dermatologists on this sheet. Please return to the Ed if you have new or worsening symptoms. - Post Discharge Activity PT HAS PHONE NUMBERS FOR THE DERMATOLOGISTS REFERRAL ABOVE IN HIS PATIENT PACKAGE TO CALL AND MAKE APPOINTMENT TO DR. RODRIGUEZ TO HOME IN [place].
[2018-04-06] MEDS ORDERED: COLLOIDAL OATMEAL 1 BAR EACH TP PRN (12:01)
[2018-04-06] MEDS: hydrOXYzine PAMOATE 50 MG CAPSULE (FP) PO PRN ×2 (12:03→21:44)
[2018-04-06] MEDS: MINERAL OIL/PETROLAT/WATER TOPICAL CREAM 113 GM JAR TP SCH (13:07)
[2018-04-06] MEDS: MELATONIN 5 MG TABLETS PO PRN (21:44)
[2018-04-06] MEDS: THIAMINE HCL 100 MG TABLET (FP) PO SCH (21:44)
[2018-04-06] MEDS ORDERED: PT OWN MED DRAWER 7, Y5N ONE (22:32)
[2018-04-07] MEDS: hydrOXYzine PAMOATE 50 MG CAPSULE (FP) PO PRN ×4 (06:14→22:03)
[2018-04-07] MEDS: LACTULOSE 20 GM/30 ML UDC (FOR ORAL USE ONLY) PO SCH ×3 (06:14→22:03)
[2018-04-07] MEDS ORDERED: PT OWN MED DRAWER 7, Y5N ONE (08:30)
[2018-04-07] MEDS: MINERAL OIL/PETROLAT/WATER TOPICAL CREAM 113 GM JAR TP SCH (10:22)
[2018-04-07] MEDS: NICOTINE 21 MG/24 HOURS TOPICAL PATCH TD SCH (10:22)
[2018-04-07] MEDS: PRENATAL VITAMINS W/ FOLIC ACID TABLET (FP) PO SCH (10:23)
--- NOTE | 2018-04-07 15:36 | HP ---
Psychiatrist Admission - Data Date of interview: 04/07/18 Admission source: Transfer from [address] [place] [address] Identifying data: Case of a 42 y/o [place]-born male who completed detoxification at [address] [place] [address] prior to this transfer to [address] to address alcohol dependence in rehabilitation. Patient is single without dependents, domiciled,unemployed and supported on odd jobs. Medical History: Rash of unknown etiology (arms and lower extremities). Seen at [facility] and medically cleared. Chronic condition (flare reported in May 2017). History of rhinoplasty (1975). Psychiatric History: Patient denies. Physical/Sexual Abuse/Trauma History: No history reported. Additional Comment: Substance abuse profile : Smoking history: Never smoked. Have you smoked in the past 12 months: No. Hx Chewing Tobacco Use: No. Initiated information on smoking cessation: No. - Substance & Tx. History. Hx Alcohol Use: Yes. Hx Substance Use: No. Substance Use Type: Alcohol. Hx Substance Use Treatment: No. - Substances Abused. ALCOHOL - TEQUILA. Route : Oral. Frequency: Daily. Age of first use: 15. Date of Last Use: 06/02/17. Drug Screen is negative. Vital Signs: Vital Signs - 24 hr 04/07/18 04/07/18 03:30 06:41 Temperature 97.9 F Pulse Rate 60 Respiratory 18 18 Rate Blood Pressure 99/67 Allergies/Adverse Reactions: Allergies Allergy/AdvReac Type Severity Reaction Status Date / Time No Known Allergies Allergy Verified 04/06/18 03:06 - Substance Abuse/Tx History Hx Alcohol Use: Yes (since age 11) Hx Substance Use: Yes (alcohol) Substance Use Type: Alcohol (consumes 3 pints of voka daily) Hx Substance Use Treatment: Yes Mental Status Exam - Mental Status Exam Alert and Oriented to: Time, Place, Person Cognitive Function: Good Patient Appearance: Well Groomed (short stature ; dark spots all over arms, forearms (visible), back and abdomen (not seen but reported by the patient)) Mood: Nervous, Anxious, Apprehensive Affect: Mood Congruent, Constricted Patient Behavior: Appropriate, Cooperative Speech Pattern: Clear, Appropriate Voice Loudness: Normal Thought Process: Goal Oriented Thought Disorder: Not Present Hallucinations: Denies Suicidal Ideation: Denies Homicidal Ideation: Denies Insight/Judgement: Fair Sleep: Well Appetite: Good Muscle strength/Tone: Normal Gait/Station: Normal Psychiatric Findings - Problem List ([place] 1, 2,3) (1) Alcohol dependence Current Visit: Yes Status: Acute - Initial Treatment Plan Initial Treatment Plan: Psychoeducation. Sleep hygiene. AA meetings. Group/ supportive therapy. Monitor progression of skin rash. Observe patient for occurrence of a protracted withdrawal. Discussed with nurse in charge.
[2018-04-07] MEDS: THIAMINE HCL 100 MG TABLET (FP) PO SCH (22:03)
[2018-04-07] MEDS: MELATONIN 5 MG TABLETS PO PRN (22:03)
[2018-04-08] MEDS: hydrOXYzine PAMOATE 50 MG CAPSULE (FP) PO PRN ×4 (06:21→22:05)
[2018-04-08] MEDS: LACTULOSE 20 GM/30 ML UDC (FOR ORAL USE ONLY) PO SCH ×3 (06:21→22:04)
[2018-04-08] MEDS ORDERED: PT OWN MED DRAWER 7, Y5N ONE (08:27)
[2018-04-08] MEDS: PRENATAL VITAMINS W/ FOLIC ACID TABLET (FP) PO SCH (10:01)
[2018-04-08] MEDS: NICOTINE 21 MG/24 HOURS TOPICAL PATCH TD SCH (10:01)
[2018-04-08] MEDS: MINERAL OIL/PETROLAT/WATER TOPICAL CREAM 113 GM JAR TP SCH (10:02)
[2018-04-08] MEDS ORDERED: COLLOIDAL OATMEAL 1 BAR EACH TP PRN (12:40)
[2018-04-08] MEDS: THIAMINE HCL 100 MG TABLET (FP) PO SCH (22:04)
[2018-04-08] MEDS: MELATONIN 5 MG TABLETS PO PRN (22:05)
[2018-04-09] MEDS: hydrOXYzine PAMOATE 50 MG CAPSULE (FP) PO PRN ×2 (06:29→21:34)
[2018-04-09] MEDS: LACTULOSE 20 GM/30 ML UDC (FOR ORAL USE ONLY) PO SCH ×3 (06:29→21:34)
[2018-04-09] MEDS ORDERED: PT OWN MED DRAWER 7, Y5N ONE (08:26)
[2018-04-09] MEDS: MINERAL OIL/PETROLAT/WATER TOPICAL CREAM 113 GM JAR TP SCH (10:11)
[2018-04-09] MEDS: NICOTINE 21 MG/24 HOURS TOPICAL PATCH TD SCH (10:11)
[2018-04-09] MEDS: PRENATAL VITAMINS W/ FOLIC ACID TABLET (FP) PO SCH (10:11)
[2018-04-09] MEDS: THIAMINE HCL 100 MG TABLET (FP) PO SCH (21:34)
[2018-04-09] MEDS: MELATONIN 5 MG TABLETS PO PRN (22:58)
[2018-04-10] MEDS: LACTULOSE 20 GM/30 ML UDC (FOR ORAL USE ONLY) PO SCH ×3 (06:10→21:53)
--- NOTE | 2018-04-10 08:57 | PN ---
[facility] Progress Note Note: PATIENT PRESENTS WITH C/O ITCHING, MAINLY AT NIGHT. DENIES FEVER, RASHES, LESIONS AND ANY ABRASIONS TO SKIN. STATES ITCHING RESOLVES SPONTANEOUSLY. Vital Signs Temperature 98.2 F 04/10/18 06:54 Pulse Rate 69 04/10/18 06:54 Respiratory Rate 18 04/10/18 06:54 Blood Pressure 100/68 04/10/18 06:54 O2 Sat by Pulse Oximetry (%) Laboratory Tests 04/05/18 04/05/18 04/05/18 13:57 13:57 14:00 WBC 4.1 RBC 3.92 L Hgb 13.0 Hct 39.3 MCV 100.1 H MCH 33.1 MCHC 33.1 RDW 17.6 H Plt Count 141 D MPV 8.5 Sodium 135 L Potassium 3.8 Chloride 100 Carbon Dioxide 25 Anion Gap 10 BUN 7 Creatinine 0.7 Creat Clearance w eGFR > 60 Random Glucose 114 H Calcium 9.0 Total Bilirubin 3.4 H AST 155 H ALT 140 H Alkaline Phosphatase 125 H Ammonia 115.23 H Creatine Kinase 201 Creatine Kinase Index 1.4 CK-MB (CK-2) 3.0 Total Protein 7.1 Albumin 3.6 Urine Color Urine Appearance Urine pH Ur Specific [place] Urine Protein Urine Glucose (UA) Urine Ketones Urine Blood Urine Nitrite Urine Bilirubin Urine Urobilinogen Ur Leukocyte Esterase Urine WBC (Auto) Urine RBC (Auto) Ur Epithelial Cells Urine Bacteria Urine Mucus 04/05/18 22:00 WBC RBC Hgb Hct MCV MCH MCHC RDW Plt Count MPV Sodium Potassium Chloride Carbon Dioxide Anion Gap BUN Creatinine Creat Clearance w eGFR Random Glucose Calcium Total Bilirubin AST ALT Alkaline Phosphatase Ammonia Creatine Kinase Creatine Kinase Index CK-MB (CK-2) Total Protein Albumin Urine Color Diana Urine Appearance Clear Urine pH 5.0 D Ur Specific [place] 1.023 Urine Protein 1+ H Urine Glucose (UA) Negative Urine Ketones Negative Urine Blood Negative Urine Nitrite Negative Urine Bilirubin 4.0 Urine Urobilinogen 4.0 e.u/dl Ur Leukocyte Esterase Negative Urine WBC (Auto) 15 Urine RBC (Auto) <1 Ur Epithelial Cells Rare Urine Bacteria Rare Urine Mucus Rare PE: ALERT AND ORIENTED X 3 SKIN WARM AND DRY, + MULTIPLE ECCHYMOTIC AREAS ON ARMS, TORSO. NO VISIBLE REDNESS OR RASHES. EYES: +PERRLA, SCLERA JAUNDICE EXT FULL ROM, NO EDEMA AMB AD GREGORIO A/P: PRURITIS: LIKELY RELATED TO ELEVATED BILIRUBIN WILL ORDER HYDROCORTISONE OINTMENT TO HELP SYMPTOMS ECCHYMOSIS: EVALUATED IN [facility] PRIOR TO ADMISSION. PATIENT HAS REFERRAL TO SPECIALIST THIS MONTH. CONTINUE TO MONITOR CLINICALLY. ELEVATED AMMONIA LEVEL: CONTINUE LACTULOSE. REPEAT AMMONIA LEVEL IN AM
[2018-04-10] MEDS: HYDROCORTISONE 0.5% TOPICAL OINTMENT TUBE TP SCH (10:10)
[2018-04-10] MEDS: MINERAL OIL/PETROLAT/WATER TOPICAL CREAM 113 GM JAR TP SCH (10:10)
[2018-04-10] MEDS: PRENATAL VITAMINS W/ FOLIC ACID TABLET (FP) PO SCH (10:10)
[2018-04-10] MEDS: NICOTINE 21 MG/24 HOURS TOPICAL PATCH TD SCH (10:10)
[2018-04-10] MEDS: hydrOXYzine PAMOATE 50 MG CAPSULE (FP) PO PRN ×2 (10:11→21:53)
[2018-04-10] MEDS ORDERED: PT OWN MED DRAWER 7, Y5N ONE ×2 (14:38→22:59)
[2018-04-10] MEDS: MELATONIN 5 MG TABLETS PO PRN (21:53)
[2018-04-10] MEDS: THIAMINE HCL 100 MG TABLET (FP) PO SCH (21:53)
[2018-04-11] MEDS: HYDROCORTISONE 0.5% TOPICAL OINTMENT TUBE TP SCH ×3 (00:44→21:39)
[2018-04-11] MEDS: LACTULOSE 20 GM/30 ML UDC (FOR ORAL USE ONLY) PO SCH ×3 (05:57→21:39)
[2018-04-11] MEDS: NICOTINE 21 MG/24 HOURS TOPICAL PATCH TD SCH (10:05)
[2018-04-11] MEDS: PRENATAL VITAMINS W/ FOLIC ACID TABLET (FP) PO SCH (10:05)
[2018-04-11] MEDS: hydrOXYzine PAMOATE 50 MG CAPSULE (FP) PO PRN ×2 (10:06→21:39)
[2018-04-11] MEDS: MINERAL OIL/PETROLAT/WATER TOPICAL CREAM 113 GM JAR TP SCH (10:26)
[2018-04-11] MEDS: THIAMINE HCL 100 MG TABLET (FP) PO SCH (21:38)
[2018-04-11] MEDS: MELATONIN 5 MG TABLETS PO PRN (21:38)
[2018-04-11] MEDS ORDERED: PT OWN MED DRAWER 7, Y5N ONE (23:32)
[2018-04-12] MEDS: LACTULOSE 20 GM/30 ML UDC (FOR ORAL USE ONLY) PO SCH ×3 (06:04→21:30)
[2018-04-12] MEDS: hydrOXYzine PAMOATE 50 MG CAPSULE (FP) PO PRN ×2 (09:47→21:30)
[2018-04-12] MEDS: MINERAL OIL/PETROLAT/WATER TOPICAL CREAM 113 GM JAR TP SCH (09:47)
[2018-04-12] MEDS: PRENATAL VITAMINS W/ FOLIC ACID TABLET (FP) PO SCH (09:47)
[2018-04-12] MEDS: HYDROCORTISONE 0.5% TOPICAL OINTMENT TUBE TP SCH ×2 (09:48→21:32)
[2018-04-12] MEDS: NICOTINE 21 MG/24 HOURS TOPICAL PATCH TD SCH (09:48)
[2018-04-12] MEDS: THIAMINE HCL 100 MG TABLET (FP) PO SCH (21:30)
[2018-04-12] MEDS: MELATONIN 5 MG TABLETS PO PRN (21:31)
[2018-04-13] MEDS: hydrOXYzine PAMOATE 50 MG CAPSULE (FP) PO PRN ×3 (06:10→21:09)
[2018-04-13] MEDS: LACTULOSE 20 GM/30 ML UDC (FOR ORAL USE ONLY) PO SCH ×3 (06:10→21:09)
[2018-04-13] MEDS: PRENATAL VITAMINS W/ FOLIC ACID TABLET (FP) PO SCH (09:55)
[2018-04-13] MEDS: MINERAL OIL/PETROLAT/WATER TOPICAL CREAM 113 GM JAR TP SCH (09:56)
[2018-04-13] MEDS: NICOTINE 21 MG/24 HOURS TOPICAL PATCH TD SCH (09:56)
[2018-04-13] MEDS: HYDROCORTISONE 0.5% TOPICAL OINTMENT TUBE TP SCH ×2 (09:57→21:12)
[2018-04-13] MEDS: THIAMINE HCL 100 MG TABLET (FP) PO SCH (21:09)
[2018-04-13] MEDS: MELATONIN 5 MG TABLETS PO PRN (21:09)
[2018-04-13] MEDS ORDERED: PT OWN MED DRAWER 7, Y5N ONE (21:12)
[2018-04-14] MEDS: LACTULOSE 20 GM/30 ML UDC (FOR ORAL USE ONLY) PO SCH ×3 (06:30→21:24)
[2018-04-14] MEDS ORDERED: PT OWN MED DRAWER 7, Y5N ONE (08:24)
[2018-04-14] MEDS: PRENATAL VITAMINS W/ FOLIC ACID TABLET (FP) PO SCH (09:47)
[2018-04-14] MEDS: NICOTINE 21 MG/24 HOURS TOPICAL PATCH TD SCH (09:47)
[2018-04-14] MEDS: HYDROCORTISONE 0.5% TOPICAL OINTMENT TUBE TP SCH ×2 (09:48→21:26)
[2018-04-14] MEDS: MINERAL OIL/PETROLAT/WATER TOPICAL CREAM 113 GM JAR TP SCH (09:48)
[2018-04-14] MEDS: MELATONIN 5 MG TABLETS PO PRN (21:24)
[2018-04-14] MEDS: THIAMINE HCL 100 MG TABLET (FP) PO SCH (21:24)
[2018-04-14] MEDS: hydrOXYzine PAMOATE 50 MG CAPSULE (FP) PO PRN (21:24)
[2018-04-15] MEDS: LACTULOSE 20 GM/30 ML UDC (FOR ORAL USE ONLY) PO SCH ×3 (06:02→21:14)
[2018-04-15] MEDS: PRENATAL VITAMINS W/ FOLIC ACID TABLET (FP) PO SCH (09:52)
[2018-04-15] MEDS: MINERAL OIL/PETROLAT/WATER TOPICAL CREAM 113 GM JAR TP SCH (09:53)
[2018-04-15] MEDS: hydrOXYzine PAMOATE 50 MG CAPSULE (FP) PO PRN ×2 (09:53→21:14)
[2018-04-15] MEDS: HYDROCORTISONE 0.5% TOPICAL OINTMENT TUBE TP SCH ×2 (09:53→21:15)
[2018-04-15] MEDS: NICOTINE 21 MG/24 HOURS TOPICAL PATCH TD SCH (09:53)
[2018-04-15] MEDS: THIAMINE HCL 100 MG TABLET (FP) PO SCH (21:14)
[2018-04-15] MEDS: MELATONIN 5 MG TABLETS PO PRN (21:14)
[2018-04-16] MEDS: LACTULOSE 20 GM/30 ML UDC (FOR ORAL USE ONLY) PO SCH ×3 (06:05→21:19)
[2018-04-16] MEDS: PRENATAL VITAMINS W/ FOLIC ACID TABLET (FP) PO SCH (09:49)
[2018-04-16] MEDS: hydrOXYzine PAMOATE 50 MG CAPSULE (FP) PO PRN ×2 (09:49→21:18)
[2018-04-16] MEDS: HYDROCORTISONE 0.5% TOPICAL OINTMENT TUBE TP SCH ×2 (10:29→21:19)
[2018-04-16] MEDS: MINERAL OIL/PETROLAT/WATER TOPICAL CREAM 113 GM JAR TP SCH (10:29)
[2018-04-16] MEDS: NICOTINE 21 MG/24 HOURS TOPICAL PATCH TD SCH (10:30)
[2018-04-16] MEDS: THIAMINE HCL 100 MG TABLET (FP) PO SCH (21:18)
[2018-04-16] MEDS: MELATONIN 5 MG TABLETS PO PRN (21:19)
[2018-04-17] MEDS: LACTULOSE 20 GM/30 ML UDC (FOR ORAL USE ONLY) PO SCH ×3 (06:23→21:31)
[2018-04-17] MEDS: hydrOXYzine PAMOATE 50 MG CAPSULE (FP) PO PRN (06:23)
[2018-04-17 06:50] VITALS: TEMP 97.9
[2018-04-17] MEDS: MINERAL OIL/PETROLAT/WATER TOPICAL CREAM 113 GM JAR TP SCH (09:58)
[2018-04-17] MEDS: PRENATAL VITAMINS W/ FOLIC ACID TABLET (FP) PO SCH (09:58)
[2018-04-17] MEDS: HYDROCORTISONE 0.5% TOPICAL OINTMENT TUBE TP SCH ×2 (09:58→21:32)
[2018-04-17] MEDS: NICOTINE 21 MG/24 HOURS TOPICAL PATCH TD SCH (09:58)
--- NOTE | 2018-04-17 15:36 | PN ---
S Progress Note Note: Laboratory Results - last 24 hr 04/17/18 11:45 Ammonia 71.80 H PATIENT CONTINUES ON LACTULOSE AND FOR D/C IN AM. PATIENT IS ALERT AND ORIENTED X 3 AND IN NO ACUTE DISTRESS. PATIENT ENCOURAGED TO FOLLOW UP WITH PCP WITHIN ONE WEEK OF D/C FOR RE-EVALUATION AND TREATMENT. CONTINUE TO MONITOR CLINICALLY.
[2018-04-17] MEDS: THIAMINE HCL 100 MG TABLET (FP) PO SCH (21:31)
[2018-04-17] MEDS: MELATONIN 5 MG TABLETS PO PRN (21:32)
[2018-04-18] MEDS: LACTULOSE 20 GM/30 ML UDC (FOR ORAL USE ONLY) PO SCH (06:11)
[2018-04-18 06:53] VITALS: BP 109/69; PULSE 68
[2018-04-18] MEDS: PRENATAL VITAMINS W/ FOLIC ACID TABLET (FP) PO SCH (09:04)
--- NOTE | 2018-04-18 09:13 | PN ---
Psychiatric Progress Note Vital Signs: Vital Signs Period Temp Pulse Resp BP Sys/Reynolds Pulse Ox Last 24 Hr 97.9 F 68 18-18 109/69 Date of Session: 04/18/18 Chief Complaint:: "Discharge" HPI: Patient was admitted to [facility] for alcohol dependence. ROS: Rash of unknown etiology (arms and lower extremities). Seen at [facility] and medically cleared. Chronic condition (flare reported in May 2017). History of rhinoplasty (1975). Current Medications: Active Medications Generic Name Dose Route Start Last Admin Trade Name Freq PRN Reason Stop Dose Admin Al Hydroxide/Mg Hydroxide 30 ml 04/05/18 12:27 Mylanta Oral Suspension - PO Q6H PRN DYSPEPSIA Colloidal Oatmeal 1 applic 04/08/18 12:40 Aveeno Soap - TP DAILY PRN HYGEINE Eucalyptus/Menthol/Phenol/Sorbitol 1 each 04/05/18 12:27 Cepastat Lozenge - MM Q4H PRN SORE THROAT Guaifenesin 10 ml 04/05/18 12:27 Robitussin Dm - PO Q6H PRN COUGH Hydrocortisone 1 applic 04/10/18 10:00 04/17/18 21:32 Hytone 0.5% Ointment - TP Not Given BID LEATHA Hydroxyzine Pamoate 50 mg 04/05/18 12:27 04/17/18 06:23 Vistaril - PO 50 mg Q4H PRN Administration AGITATION Ibuprofen 400 mg 04/05/18 12:27 Motrin - PO Q6H PRN Pain level 4-6 Lactulose 20 gm 04/05/18 14:00 04/18/18 06:11 Cephulac (Oral Use) PO 20 gm TID LEATHA Administration Loperamide HCl 4 mg 04/05/18 12:27 Imodium - PO Q6H PRN DIARRHEA Magnesium Citrate 300 ml 04/05/18 12:27 Citroma - PO Q48H PRN CONSTIPATION Magnesium Hydroxide 30 ml 04/05/18 12:27 Milk Of Magnesia - PO DAILY PRN CONSTIPATION Melatonin 5 mg 04/05/18 22:00 04/17/18 21:32 Melatonin PO 5 mg HS PRN Administration INSOMNIA Multi-Ingredient Lotion 1 applic 04/06/18 12:15 04/17/18 09:58 Eucerin (Small Jar) - TP Not Given DAILY LEATHA Nicotine 21 mg 04/06/18 10:00 04/17/18 09:58 Nicoderm Patch - TD Not Given DAILY LEATHA Nicotine Polacrilex 4 mg 04/05/18 12:27 Nicorette Gum - BUC Q2H PRN NICOTINE REPLACEMENT RX Multivit/Folic Acid/Iron 1 tab 04/06/18 10:00 04/18/18 09:04 Vitamins (Sjr) - PO 1 tab DAILY LEATHA Administration Pseudoephedrine/Triprolidine 1 combo 04/05/18 12:27 Actifed - PO TID PRN NASAL CONGESTION Thiamine HCl 100 mg 04/05/18 22:00 04/17/18 21:31 Vitamin B1 - PO 100 mg HS LEATHA Administration Medication(s) Change(s): No. Current Side Effect: No Lab tests ordered: No Lab tests reviewed: No Provider note:: Patient able to complete rehab on 04/18/18. Patient is coherent , alert and oriented X3. Patient has met his treatment goals and will continue to address his issues at the [facility] outpatient clinic. Patient reports feeling good about leaving rehab and is now looking forward to continue his goal of remaining abstinent from alcohol dependence. Patient is stable for discharge on 04/18/18. Total face to face time:: 35 Mental Status Exam - Mental Status Exam Alert and Oriented to: Time, Place, Person Cognitive Function: Good Patient Appearance: Well Groomed Mood: Hopeful Affect: Appropriate Patient Behavior: Appropriate, Cooperative Speech Pattern: Clear, Appropriate Voice Loudness: Normal Thought Process: Intact Thought Disorder: Not Present Hallucinations: Denies Suicidal Ideation: Denies Homicidal Ideation: Denies Insight/Judgement: Good Sleep: Well Appetite: Good Muscle strength/Tone: Normal Gait/Station: Normal Psychiatric Treatment Plan - Problem List (1) Alcohol dependence Current Visit: Yes
== END 2018-04-18 09:15 | disposition home or self-care (01) | DRG 772 ==
LOC: YASAS 10:13 → Y3W 13:35
PROVIDERS: ADMIT Psychiatry & Neurology Psychiatry; ATTEND Psychiatry & Neurology Psychiatry
PROC: HZ42ZZZ Group Counseling for Substance Abuse Treatment, Cognitive-Behavioral (ICD-10-PCS; principal; 2018-04-05)
DX: F10.20 Alcohol dependence, uncomplicated (principal); F17.210 Nicotine dependence, cigarettes, uncomplicated; F32.9 Major depressive disorder, single episode, unspecified; L29.8 Other pruritus; R21 Rash and other nonspecific skin eruption; R94.5 Abnormal results of liver function studies; R74.8 Abnormal levels of other serum enzymes; R55 Syncope and collapse; E87.6 Hypokalemia; E87.1 Hypo-osmolality and hyponatremia; R63.4 Abnormal weight loss; Z68.26 Body mass index [BMI] 26.0-26.9, adult; T07.XXXA Unspecified multiple injuries, initial encounter
CPT/HCPCS: 36415; 80053; 81003; 81015; 82140; 82247; 82550; 82553; 84075; 84450; 84460; 85027; 99281-25

== ENCOUNTER 2018-04-05 17:57 | Emergency (ER) | payer OTHER ==
--- NOTE | 2018-04-05 18:06 | PDOC ---
Rapid Medical Evaluation Time Seen by Provider: 04/05/18 18:03 Medical Evaluation: Allergies Allergy/AdvReac Type Severity Reaction Status Date / Time No Known Allergies Allergy Verified 04/05/18 11:34 04/05/18 18:03 I have performed a brief in-person evaluation of this patient. The patient presents with a chief complaint of: unexplained ecchymosis to arms and trunk Pertinent physical exam findings: multiple ecchymosis to B/L arms and lower back. I have ordered the following: labs, urine The patient will proceed to the ED for further evaluation. Discharge Disposition - Diagnosis Multiple bruises - Referrals - Patient Instructions - Post Discharge Activity
[2018-04-05 18:11] VITALS: BP 101/70; PULSE 86; TEMP 98.2; BMI 26.6
--- NOTE | 2018-04-05 21:19 | PDOC ---
History of Present Illness - General Chief Complaint: Revisit, Lab Variance Stated Complaint: INJURY Time Seen by Provider: 04/05/18 18:03 History Source: Patient, Custodial Records Exam Limitations: No Limitations - History of Present Illness Initial Comments: 04/05/18 21:17 This is a 42 YOM with h/o EtOH dependence who [facility] extreme shakes, sweats, purpura all over skin, and coca-cola urine, as reported by TAMMI Burnett at [facility] (I took report from her). She explains that the patient had an abrupt worsening of mental status after transferring from the detox unit to the general rehab unit today. They then noticed head-to-toe bruising. The patient himself notes that some of the bruises have been there for many days/weeks/months, but most of them arrived yesterday while he was taking a shower. Past History - Past Medical History Allergies/Adverse Reactions: Allergies Allergy/AdvReac Type Severity Reaction Status Date / Time No Known Allergies Allergy Verified 04/06/18 03:06 Home Medications: Ambulatory Orders Lactulose (Oral Use) [Cephulac -] 20 gm PO BID 3 Days #1 bottle 04/17/18 Anemia: No Asthma: No Cancer: No Cardiac Disorders: No CVA: No COPD: No CHF: No Dementia: No Diabetes: No GI Disorders: No Disorders: No HTN: No Hypercholesterolemia: No Kidney Stones: No Liver Disease: No Seizures: No Thyroid Disease: No - Surgical History Abdominal Surgery: No Appendectomy: No Cardiac Surgery: No Cholecystectomy: No Lung Surgery: No Neurologic Surgery: No Orthopedic Surgery: No - Reproductive History Testicular Surgery: No - Suicide/Smoking/Psychosocial Hx Smoking History: Never smoked Have you smoked in the past 12 months: No Number of Cigarettes Smoked Daily: 1 Cigars Per Day: 0 'Breaking Loose' booklet given: 04/01/18 Hx Alcohol Use: Yes (04/01 was last drink) Drug/Substance Use Hx: No Substance Use Type: Alcohol Hx Substance Use Treatment: Yes Review of Systems - Review of Systems Able to Perform ROS?: Yes Comments:: GEN: no fever, chills, malaise, generalized weakness, or weight change HEENT: no ear pain, sore throat, vision change, or eye pain CV: no chest pain, palpitations, lightheadedness, syncope, or edema RESP: no cough, wheezing, or SOB GI: no abdominal pain, nausea, vomiting, diarrhea, constipation, or white/black/ bloody stool : no dysuria, hematuria, incontinence, retention, bleeding, or discharge MSK: no neck/back pain, muscle weakness/pain, or joint swelling/pain NEURO: no headache, seizure, vertigo, numbness, tingling, or focal weakness PSYCH: no substance use, no behavior change SKIN: many bruises, no jaundice ROS otherwise negative except as noted in HPI *Physical Exam - Vital Signs Last Vital Signs Temp Pulse Resp BP Pulse Ox 98.2 F 86 20 101/70 97 04/05/18 18:05 04/05/18 18:05 04/05/18 18:05 04/05/18 18:05 04/05/18 18:05 GENERAL: nontoxic-appearing, A/Ox4, no distress, answers questions appropriately , a bit tremulous but states this is baseline, Romansh speaking only HEENT: PERRLA, EOMI, moist mucous membranes NECK/BACK: see skin exam; no midline ttp, no spinal stepoff or deformity, no hematoma, full ROM, neck supple CARDIOVASCULAR: regular rate/rhythm, normal S1S2, no MGR, strong peripheral pulses, capillary refill <2 seconds, extremities wwp, no edema LUNGS/RESPIRATORY: no respiratory distress, CTAB GI/ABDOMEN: see skin exam; symmetric [id number], normoactive BS, soft, no ttp , no midline pulsatile masses : no CVA tenderness EXTREMITIES: see skin exam; no muscle atrophy, no acute deformity, no edema SKIN: many areas of ecchymosis at multiple stages of healing and multiple sizes , concentrated on BUE, BLE, lower abdomen, and lower back, not raised or scaly, skin otherwise warm and dry, no pallor, no jaundice, no skin breakdown, no cuts , no lesions NEUROLOGICAL: GCS 15, CN II-XII grossly intact, 5/5 strength proximally and distally, no facial droop, gait normal Moderate Sedation - Procedure Monitoring Vital Signs: Procedure Monitoring Vital Signs Temperature 98.2 F 04/05/18 18:05 Pulse Rate 86 04/05/18 18:05 Respiratory Rate 20 04/05/18 18:05 Blood Pressure 101/70 11/28/18 18:05 O2 Sat by Pulse Oximetry (%) 97 04/05/18 18:05 ED Treatment Course - ADDITIONAL ORDERS Additional order review: Laboratory Results 04/05/18 13:58 Creatine Kinase Cancelled Medical Decision Making - Medical Decision Making Adult patient p/w many bruises in multiple stages of healing, tender, but much of this is chronic. Initial Vital Signs Temp Pulse Resp BP Pulse Ox 98.2 F 86 20 101/70 97 04/05/18 18:05 04/05/18 18:05 04/05/18 18:05 04/05/18 18:05 04/05/18 18:05 Exam: As noted in Physical Exam section. DDX IBNLT: thrombocytopenia-related bleeding, liver failure with coagulopathy, soft tissue trauma, HUS/TTP, HCV vasculitis or other vasculitis, DIC, etc. W/U ordered: Labs as noted below TX ordered: None at this time Laboratory Tests 04/05/18 04/05/18 13:58 22:19 Creatine Kinase Cancelled Urine Color Diana Urine Appearance Clear Urine pH 6.0 Ur Specific [place] 1.019 Urine Protein 1+ H Urine Glucose (UA) Negative Urine Ketones Negative Urine Blood Negative Urine Nitrite Negative Urine Bilirubin 4.0 Urine Urobilinogen 4.0 e.u/dl Ur Leukocyte Esterase Negative Urine WBC (Auto) 3 Urine RBC (Auto) <1 Ur Epithelial Cells Rare Urine Mucus Rare The patient's care is endorsed to Dr. Garza at the end of my shift pending bloodwork, further workup, possible admission. *DC/Admit/Observation/Transfer Diagnosis at time of Disposition: Multiple bruises - Discharge Dispostion Disposition: ELP - Referrals Referrals: Jimi Tomlin MD [Primary Care Provider] - - Patient Instructions - Post Discharge Activity
--- NOTE | 2018-04-05 21:20 | PDOC ---
Attending Attestation - HPI HPI: 04/05/18 22:11 Patient is a 42 year old male with a significant past medical history of alcohol dependence, who presents to the ED with complaints of general body rash that began yesterday afternoon. As per [facility] staff, patient was finishing detox when he desired to be admitted to rehab. Staff reports patient began to experience a sudden change in mental status upon arrival to rehab. They report patient experiencing associated symptoms of associated general body rash, prompting them to send the patient to the ED for further evaluation. Denies chest pain, Sob. Denies nausea, vomiting. Denies fevers, chills. Denies contact with sick individuals, out of state travelling.. Denies dysuria, hematuria. Denies diarrhea, constipation. Denies trauma to affected area. Denies any other symptoms. Allergies: None Social history: Current alcohol use. No illicit drugs. No smoking. Surgical history: None PMD: Dr. Tomlin <Deny Aguirre - Last Filed: 04/05/18 22:11> - Resident Resident Name: Ana Gómez - ED Attending Attestation I have performed the following: I have examined & evaluated the patient, The case was reviewed & discussed with the resident, I agree w/resident's findings & plan, Exceptions are as noted - Physicial Exam PE: 04/05/18 22:23 Agree with exam documented by resident AOx3, NAD +scleral icterus, neck supple OP clear w/o bleeding or petechiae Diffuse non-palpable, blanching purpura and bruising, diffusely distributed, including trunk, but concentrated along distal extremities Abd soft, nt, nd, no hsm FROM w/o px - Medical Decision Making 04/05/18 22:25 Concern for vasculitis vs platelet derangement eval for infectious trigger? medication trigger? f/u abd us, labs likely for admission 04/06/18 05:47 Patient was for admission for workup but he eloped. He was sent back from [facility] but states that he wants to leave AMA The patient has verbalized understanding of my concerns. The patient is clinically sober and appears free from distracting injury. The patient appears to have intact insight, judgment, and reason. In my opinion, this patient has the capacity to make decisions The risks of leaving against medical advice without further evaluation and treatment were discussed with the patient. These risks include and permanent disability. The patient indicated understanding of these risks and appeared to have the capacity to make this decision. <Fede Mccoy - Last Filed: 04/06/18 05:52>
[2018-04-05 22:36] LABS: URINE APPEARANCE CLEAR; URINE COLOR AMBER; URINE GLUCOSE (UA) NEGATIVE (NEGATIVE); URINE KETONE NEGATIVE (NEGATIVE); URINE LEUK ESTERASE NEGATIVE (NEGATIVE); URINE NITRITE NEGATIVE (NEGATIVE); URINE PROTEIN 1+ (NEGATIVE); URINE UROBILINOGEN 4.0 E.U/dl mg/dL (0.2-1.0)
[2018-04-05 22:44] LABS: EPI CELLS RARE /HPF (FEW); URINE MUCUS RARE
== END 2018-04-05 22:45 | disposition left against medical advice (07) ==
LOC: JER 17:57
DX: R21 Rash and other nonspecific skin eruption (principal)
CPT/HCPCS: 36415; 81003; 81015; 86880; 99281-25

== ENCOUNTER 2018-04-06 07:39 | Emergency (ER) | payer OTHER ==
[2018-04-06 07:51] VITALS: BP 104/66; PULSE 68; TEMP 98.5; BMI 21.6
--- NOTE | 2018-04-06 09:13 | PDOC ---
History of Present Illness - General Chief Complaint: Rash Stated Complaint: RASH Time Seen by Provider: 04/06/18 08:10 - History of Present Illness Initial Comments: 42 year old male currently in rehab for EtOH abuse presenting with concern for an acute on chronic rash diffuse over his extremities and trunk. Patient states that he has had a biopsy for this rash in the past without any clue as to what is causing this rash. In our system he was recently HIV and RPR negative with slight LFT elevation on labs. He is upset with his primary care and would like a new physician along with dermatology referral. He has AMA'd and eloped multiple times from our ED. 04/06/18 09:08 Past History - Past Medical History Allergies/Adverse Reactions: Allergies Allergy/AdvReac Type Severity Reaction Status Date / Time No Known Allergies Allergy Verified 04/06/18 03:06 Home Medications: Ambulatory Orders NK [No Known Home Medication] 04/05/18 Anemia: No Asthma: No Cancer: No Cardiac Disorders: No CVA: No COPD: No CHF: No Dementia: No Diabetes: No GI Disorders: No Disorders: No HTN: No Hypercholesterolemia: No Kidney Stones: No Liver Disease: No Seizures: No Thyroid Disease: No - Surgical History Abdominal Surgery: No Appendectomy: No Cardiac Surgery: No Cholecystectomy: No Lung Surgery: No Neurologic Surgery: No Orthopedic Surgery: No - Reproductive History Testicular Surgery: No - Immunization History Immunization Up to Date: Yes - Suicide/Smoking/Psychosocial Hx Smoking History: Never smoked Have you smoked in the past 12 months: No Number of Cigarettes Smoked Daily: 1 Cigars Per Day: 0 Information on smoking cessation initiated: No 'Breaking Loose' booklet given: 04/01/18 Hx Alcohol Use: No Drug/Substance Use Hx: No Substance Use Type: Alcohol Hx Substance Use Treatment: Yes Review of Systems - Review of Systems Constitutional: No: Chills, Diaphoresis, Fever, Loss of Appetite HEENTM: No: Tearing, Double Vision Respiratory: No: Cough, Shortness of Breath, Wheezing Cardiac (ROS): No: Chest Pain, Edema, Irregular Heart Rate ABD/GI: No: Diarrhea, Nausea, Vomiting : No: Burning, Dysuria, Discharge Musculoskeletal: No: Gout, Joint Pain, Joint Swelling Integumentary: Yes: Change in Color, Erythema, Lesions, Rash Psychiatric: Yes: Other (susbtance abuse). No: Anxiety, Depression Endocrine: No: Increased Hunger, Increased Thirst Hematologic/Lymphatic: Yes: Easy Bruising. No: Anemia, Blood Clots, Easy Bleeding, Lymph Node Abnormalities *Physical Exam - Vital Signs Last Vital Signs Temp Pulse Resp BP Pulse Ox 98.5 F 68 16 104/66 97 04/06/18 07:42 04/06/18 07:42 04/06/18 07:42 04/06/18 07:42 04/06/18 07:42 - Physical Exam General Appearance: Yes: Nourished, Appropriately Dressed. No: Apparent Distress HEENT: positive: EOMI, SATURNINO, Normal ENT Inspection, Normal Voice Neck: positive: Trachea midline, Normal Thyroid, Supple. negative: Tender, Rigid Respiratory/Chest: positive: Lungs Clear, Normal Breath Sounds. negative: Chest Tender, Respiratory Distress, Accessory Muscle Use Cardiovascular: positive: Regular Rhythm, Regular Rate Gastrointestinal/Abdominal: positive: Normal Bowel Sounds, Flat, Soft. negative : Tender Lymphatic: negative: Adenopathy, Tenderness Musculoskeletal: positive: Normal Inspection. negative: Decreased Range of Motion Extremity: positive: Normal Capillary Refill, Normal Inspection, Normal Range of Motion, Pelvis Stable. negative: Tender Integumentary: positive: Dry, Warm, Erythema, Rash, Ecchymosis, Bruising, Other (multiple purple, echymotic lesion sacross all four extremities and his trunk). negative: Normal Color Neurologic: positive: Fully Oriented, Alert, Normal Mood/Affect, Normal Response , Motor Strength 5/5 Moderate Sedation - Procedure Monitoring Vital Signs: Procedure Monitoring Vital Signs Temperature 98.5 F 04/06/18 07:42 Pulse Rate 68 04/06/18 07:42 Respiratory Rate 16 04/06/18 07:42 Blood Pressure 104/66 04/06/18 07:42 O2 Sat by Pulse Oximetry (%) 97 04/06/18 07:42 Medical Decision Making - Medical Decision Making 42 year old with complaint of acute on chronic rash but otherwise stable. Lesions do not appear open or tender. He is currently in rehab and took alternate transportation here. Patient is otherwise stable so will DC patient back to rehab after we spoke to the 3 [facility] nursing staff at [facility]. 04/06/18 09:13 *DC/Admit/Observation/Transfer Diagnosis at time of Disposition: Rash and nonspecific skin eruption - Discharge Dispostion Disposition: HOME Condition at time of disposition: Improved Decision to Admit order: No - Referrals Referrals: Ino Nava [Non Staff, Medical] - Ethan Shetty [Non Staff, Medical] - [facility] [place] [facility] [place] [Provider Group] - Patient Instructions Printed Discharge Instructions: DI for Rash Additional Instructions: Please finish rehab and follow up with our clinic and dermatologists on this sheet. Please return to the Ed if you have new or worsening symptoms. - Post Discharge Activity
--- NOTE | 2018-04-06 09:38 | PDOC ---
Attending Attestation - Resident Resident Name: XiaoChristianoanthony - ED Attending Attestation I have performed the following: I have examined & evaluated the patient, The case was reviewed & discussed with the resident, I agree w/resident's findings & plan - HPI HPI: 04/06/18 09:33 42-year-old male with history of alcohol dependence presents again from [facility] for evaluation. The patient was initially seen here early yesterday after he had a shaking episode while being transferred from detox to rehabilitation, he eloped from here and return to [facility]. He returns again for evaluation of diffuse body ecchymotic lesions that he has had for one year with previously negative workups [place], but he has noted new lesions particularly on his arms over the last few days so he wants to dermatology referral. He came in overnight to get a referral but left before he was seen, presents now again from [facility] essentially seeking a dermatology referral. The lesions are not painful, sometimes itchy, not associated with any fevers or chills or other constitutional symptoms. They are identical to the lesions he has had for over 1 year, he has no other complaints whatsoever. The patient lives in [place] and wants PCP follow-up in dermatology follow- up near his home, he does not want to be admitted to the hospital for further workup. He has insurance and is just looking for a new doctor. - Physicial Exam PE: 04/06/18 09:35 Vitals are normal Patient is well-appearing and ambulating throughout the emergency department, asking to return to [facility] Heart and lungs are clear, abdomen is benign without notable hepatosplenomegaly No notable lymphadenopathy There is diffuse subcutaneous ecchymotic round lesions predominantly on the forearms, also on the abdomen and low back. There are nontender, nonindurated, nonfluctuant. There is a small rim of blanching erythema/rubor, no other superimposed infectious process - Medical Decision Making 04/06/18 09:36 42-year-old male with history of alcohol dependence with acute on chronic exacerbation of unknown skin lesion. The patient is well-appearing, has been evaluated over the last 24 hours for his episode of shaking and lightheadedness , labs notably normal for platelets, LFTs are trending downward expect secondary to alcohol dependence, history of syphilis and HIV testing was negative. The patient is well-appearing and nontoxic, is dermatologic workup can proceed non-emergently and he has adequate follow-up. Discussed with [facility] care team, he can return to his bed at the rehabilitation facility We will give dermatology follow-up, but he will likely follow up with someone closer to his home [place] Patient understands strict return criteria
== END 2018-04-06 10:11 | disposition home or self-care (01) ==
LOC: JER 07:39
DX: L98.8 Other specified disorders of the skin and subcutaneous tissue (principal); F10.20 Alcohol dependence, uncomplicated
CPT/HCPCS: 99281-25

== ENCOUNTER → 2018-04-06 | Emergency (ER) | payer OTHER ==
[2018-04-06 03:33] VITALS: BP 116/84; PULSE 89; TEMP 96.6; BMI 25.6
--- NOTE | 2018-04-06 05:16 | PDOC ---
History of Present Illness - General Chief Complaint: Rash Stated Complaint: RASH Time Seen by Provider: 04/06/18 04:23 Past History - Past Medical History Allergies/Adverse Reactions: Allergies Allergy/AdvReac Type Severity Reaction Status Date / Time No Known Allergies Allergy Verified 04/06/18 03:06 Home Medications: Ambulatory Orders NK [No Known Home Medication] 04/05/18 Anemia: No Asthma: No Cancer: No Cardiac Disorders: No CVA: No COPD: No CHF: No Dementia: No Diabetes: No GI Disorders: No Disorders: No HTN: No Hypercholesterolemia: No Kidney Stones: No Liver Disease: No Seizures: No Thyroid Disease: No - Surgical History Abdominal Surgery: No Appendectomy: No Cardiac Surgery: No Cholecystectomy: No Lung Surgery: No Neurologic Surgery: No Orthopedic Surgery: No - Reproductive History Testicular Surgery: No - Suicide/Smoking/Psychosocial Hx Smoking History: Never smoked Have you smoked in the past 12 months: No Number of Cigarettes Smoked Daily: 1 Cigars Per Day: 0 Information on smoking cessation initiated: No 'Breaking Loose' booklet given: 04/01/18 Hx Alcohol Use: Yes Drug/Substance Use Hx: No Substance Use Type: Alcohol Hx Substance Use Treatment: Yes *Physical Exam - Vital Signs Last Vital Signs Temp Pulse Resp BP Pulse Ox 96.6 F L 89 16 116/84 98 04/06/18 02:55 04/06/18 02:55 04/06/18 02:55 04/06/18 02:55 04/06/18 02:55 Moderate Sedation - Procedure Monitoring Vital Signs: Procedure Monitoring Vital Signs Temperature 96.6 F L 04/06/18 02:55 Pulse Rate 89 04/06/18 02:55 Respiratory Rate 16 04/06/18 02:55 Blood Pressure 116/84 04/06/18 02:55 O2 Sat by Pulse Oximetry (%) 98 04/06/18 02:55 Medical Decision Making - Medical Decision Making Went to approach patient but patient states he no longer wants to be seen and is tired of waiting Patient was just seen in ED last night by Dr. Mccoy with plan to admit. However, patient had eloped Patient states he would prefer to leave and go to another hospital 04/06/18 05:14 *DC/Admit/Observation/Transfer Diagnosis at time of Disposition: Rash - Discharge Dispostion Disposition: LEFT BEFORE MED EVAL, GARY RM Condition at time of disposition: Fair - Referrals - Patient Instructions - Post Discharge Activity
== END | disposition left against medical advice (07) ==
LOC: JER 02:53
DX: Z53.21 Procedure and treatment not carried out due to patient leaving prior to being seen by health care provider (principal)
CPT/HCPCS: 99281-25